=== PATIENT | male | born 1985 | race Caucasian/White ===

== ENCOUNTER 2022-08-25 13:15 | Inpatient (IN) | payer OTHER ==
[~2022-08-25] VITALS: Ht 177.8 cm; Wt 103.5 kg
[2022-08-25 14:22] LABS: HEMATOCRIT 49.2 % (42.0-52.0); HEMOGLOBIN 16.8 g/dl (13.5-17.5); MEAN CORPUSCULAR HEMOGLOBIN 29.6 pg (27.0-33.0); MEAN CORPUSCULAR HGB CONC 34.1 g/dl (32.0-36.5); MEAN CORPUSCULAR VOLUME 86.8 fl (80.0-96.0); PLATELET COUNT, AUTOMATED 285 10^3/uL (150-450); RED BLOOD COUNT 5.67 10^6/uL (4.30-6.10); WHITE BLOOD COUNT 11.4 10^3/uL (4.0-10.0)
[2022-08-25 14:48] LABS: AMPHETAMINES LEVEL URINE NEGATIVE (NEGATIVE); BARBITURATES URINE NEGATIVE (NEGATIVE); BENZODIAZEPINES URINE NEGATIVE (NEGATIVE); CANNABINOIDS URINE NEGATIVE (NEGATIVE); COCAINE METABOLITE URINE NEGATIVE (NEGATIVE); METHADONE URINE NEGATIVE (NEGATIVE); OPIATES URINE NEGATIVE (NEGATIVE)
[2022-08-25 14:49] LABS: PHENCYCLIDINE URINE NEGATIVE (NEGATIVE)
[2022-08-25 14:53] LABS: ETHYL ALCOHOL (ETHANOL) < 0.003 % (0.000-0.010)
[2022-08-25 14:54] LABS: ACETAMINOPHEN LEVEL < 2.0 UG/ML (10.0-20.0); SALICYLATE LEVEL < 3.0 MG/DL (<30)
[2022-08-25 14:57] LABS: ALBUMIN 3.9 G/DL (3.2-5.2); ALKALINE PHOSPHATASE 70 U/L (46-116); ALT/SGPT 31 U/L (7.0-40); AST/SGOT 25 U/L (<34); BILIRUBIN,DIRECT 0.2 MG/DL (<0.4); BILIRUBIN,TOTAL 0.8 MG/DL (0.3-1.2); BLOOD UREA NITROGEN 15 MG/DL (9-23); CALCIUM LEVEL 9.3 MG/DL (8.5-10.1); CARBON DIOXIDE LEVEL 26 MMOL/L (20-31); CHLORIDE LEVEL 103 MMOL/L (98-107); CREATININE FOR GFR 1.37 MG/DL (0.70-1.30); GLOMERULAR FILTRATION RATE > 60.0 (>60); GLUCOSE, FASTING 94 MG/DL (60-100); POTASSIUM SERUM 3.9 MMOL/L (3.5-5.1); SODIUM LEVEL 138 MMOL/L (136-145); THYROID STIMULATING HORMONE 1.268 uIU/ML (0.55-4.78); TOTAL PROTEIN 7.2 G/DL (5.7-8.2)
[2022-08-25] MEDS ORDERED: HOME MED LIST COMPLETE! XX SCH (20:50)
[2022-08-26] MEDS ORDERED: traZODone 50 MG TAB PO PRN (13:10)
[2022-08-26] MEDS ORDERED: MOM 30ML SUSPENSION UDC PO PRN (13:10)
[2022-08-26] MEDS ORDERED: MAALOX 30 ML SUSP *UDC PO PRN (13:10)
[2022-08-26] MEDS ORDERED: IBUPROFEN 400MG TAB PO PRN (13:10)
[2022-08-26 15:56] VITALS: BP 131/78
[2022-08-26] MEDS: NICOTINE 21MG/24HR 1 EA TRANSDERMAL TD SCH (16:54)
[2022-08-27 06:33] VITALS: BP 118/64
[2022-08-27] MEDS: NICOTINE 21MG/24HR 1 EA TRANSDERMAL TD SCH (09:00)
[2022-08-27] MEDS ORDERED: hydrOXYzine 50 MG TAB PO PRN (14:20)
[2022-08-27] MEDS: SERTRALINE HCL 50 MG TAB PO SCH (15:07)
[2022-08-27 17:50] VITALS: BP 149/63
[2022-08-28 06:43] VITALS: BP 132/78
[2022-08-28] MEDS: SERTRALINE HCL 50 MG TAB PO SCH (08:31)
[2022-08-28] MEDS: NICOTINE 21MG/24HR 1 EA TRANSDERMAL TD SCH (08:32)
[2022-08-28 18:20] VITALS: BP 138/63
[2022-08-29 06:07] VITALS: BP 120/65
[2022-08-29] MEDS: NICOTINE 21MG/24HR 1 EA TRANSDERMAL TD SCH (09:37)
[2022-08-29] MEDS: SERTRALINE HCL 50 MG TAB PO SCH (09:38)
[2022-08-29 16:07] VITALS: BP 142/67
[2022-08-30 06:21] VITALS: BP 134/71
[2022-08-30] MEDS: NICOTINE 21MG/24HR 1 EA TRANSDERMAL TD SCH (08:35)
[2022-08-30] MEDS: SERTRALINE HCL 50 MG TAB PO SCH (08:36)
[2022-08-30] MEDS ORDERED: SERT50TA29 PO (09:26)
[2022-08-30] MEDS ORDERED: TRAZ-252 PO (09:26)
== END 2022-08-30 12:07 | disposition home or self-care (01) | DRG 881 ==
LOC: EDBD 13:15 → M ED 13:15 → M ED INP 08-26 13:08 → M PSY 08-26 15:48
PROVIDERS: ADMIT Student in an Organized Health Care Education/Training Program; ATTEND Psychiatry & Neurology Psychiatry
DX: F32.9 Major depressive disorder, single episode, unspecified (principal); R45.851 Suicidal ideations; F41.8 Other specified anxiety disorders; Z83.3 Family history of diabetes mellitus; F17.210 Nicotine dependence, cigarettes, uncomplicated; Z62.810 Personal history of physical and sexual abuse in childhood; Z62.811 Personal history of psychological abuse in childhood; Z65.3 Problems related to other legal circumstances; Z20.822 Contact with and (suspected) exposure to COVID-19